=== PATIENT | female | born 1970 | race Caucasian/White ===

== ENCOUNTER 2016-11-26 21:13 | Inpatient (IN) | payer OTHER ==
[~2016-11-26] VITALS: Ht 162.6 cm; Wt 71.3 kg
[~2016-11-26 21:13] MED LIST: ALBUTEROL INH; BUDESONIDE0.5 MG/2 M IH; LAC PO; LEVAQUIN750 MG PO; LEVOFLOXACIN500 M1 PO; MEDDP PO; NICODERM C21 MG/241 TOP; PREDNISONE20 MG PO; SINGULAIR10 MG PO; VENTOLIN H0.09 MG/A1 IH; ZITHROMAX1 GM/Packe PO
--- NOTE | 2016-11-26 21:16 | NUR ---
PT BIBA TO ED FA. PER MEDIC PT HAS HX OF COPD AND HEROINE ABUSE; PT WAS USING INHALER "ALL DAY" AND REPORTED SHE WAS HAVING DIFFICULTY BREATHING, WENT TO RESTROOM AND DID NOT COME BACK OUT. PT WAS FOUND IN RESTROOM, INITIATED CPR PER MEDIC. UPON MEDIC ARRIVAL PT WAS IN AGONAL RESPS. PER MEDIC SYRINGE AND HEROINE WAS FOUND IN PT'S PURSE; IN HOME SALES REPRESENTATIVE PT WAS GIVEN 2 MG NARCAN, ONCE ON SCENE, THE OTHER EN ROUTE. PT SKIN CYANOTIC.
[2016-11-26 21:19] VITALS: BP 73/40
--- NOTE | 2016-11-26 21:22 | NUR ---
PULSE CHECK, +RHYTHM, WEAK CAROTID PULSE, +FEMORAL PER MD. EKG PERFORMED BY KARTHIKEYAN BOWSER. 125MG SOLU MEDROL GIVEN IVP TO L FOOT PER MD VERBAL ORDER.
--- NOTE | 2016-11-26 21:38 | NUR ---
CENTRAL LINE PLACED BY MD FOREMAN AT FEMORAL.
--- NOTE | 2016-11-26 21:45 | NUR ---
ALBUTEROL BRETAHING TX IN PROGRESS, ADMIN BY RT. NG TUBE PLACED.
[2016-11-26 22:00] LABS: BASOPHIL % 0.4 % (0-2); PLATELET COUNT 263 x10^3mcL (130-400); RED CELL DISTRIBUTION WIDTH 15.9 % (11.5-14.5)
[2016-11-26 22:07] LABS: CALCIUM 11.4 mg/dL (8.5-10.1); CARBON DIOXIDE 24.8 mmol/L (21-32); CHLORIDE SERUM 100 mmol/L (98-107); CREATININE SERUM 1.4 mg/dL (0.6-1.0); GFR1 43 mL/min; GLUCOSE SERUM 355 mg/dL (74-106); POTASSIUM SERUM 4.6 mmol/L (3.5-5.1); SODIUM SERUM 141 mmol/L (136-145)
[2016-11-26 22:11] LABS: ALKALINE PHOSPHATASE 211 U/L (46-116); ALT/SGPT 37 U/L (14-59); AST/SGOT 139 U/L (15-37); BILIRUBIN TOTAL 0.3 mg/dL (0.20-1.00); TOTAL PROTEIN, SERUM 6.2 g/dL (6.4-8.2)
[2016-11-26 22:12] LABS: ALBUMIN 2.9 g/dL (3.4-5.0)
[2016-11-26 23:37] VITALS: BP 123/79
--- NOTE | 2016-11-26 23:51 | NUR ---
SOPHIE: [phone] 'S MOTHER JEN: [phone]
[2016-11-26 23:53] LABS: CHOLESTEROL/HDL RATIO 3.9; FREE T4 0.83 ng/dL (0.76-1.46); FREE THYROXINE INDEX 2.4 ug/dL (1.4-4.5); T4(THYROXINE) 5.4 ug/dL (4.7-13.3)
[2016-11-27] VITALS (18 sets, daily range): BP systolic 80–123; BP diastolic 47–79; Ht 162.6 cm; Wt 71.3 kg
[2016-11-27 00:07] LABS: PHOSPHOROUS 14.9 mg/dL (2.5-4.9)
--- NOTE | 2016-11-27 00:34 | NUR ---
GAVE REPORT TO ATIF TO ASSUME CARE
--- NOTE | 2016-11-27 00:45 | NUR ---
UNABLE TO OBTAIN MED REC
[2016-11-27 01:09] LABS: T3 TOTAL 1.03 ng/mL
--- NOTE | 2016-11-27 01:30 | NUR ---
PT REMAIN CONNECTED TO FULL CM AND VENT. NG SUCTION SMALL AMOUNT TO DARK RED FLUID.
--- NOTE | 2016-11-27 02:15 | NUR ---
PT OUTPUT SMALL AMOUNT OF CLEAR PINK TINGED URINE
--- NOTE | 2016-11-27 02:58 | NUR ---
PT ARRIVED FROM ED VIA GURNEY ACCOMPANIED BY TOSIN NUNEZ AND MAGUE EMT. PT TRANSFERRED TO ICU BED WITHOUT ANY DIFFICULTIES.
--- NOTE | 2016-11-27 03:10 | NUR ---
OK TRANSFER TO ICU PER MD
[2016-11-27 04:06] LABS: microscopic required? YES; urine erythrocyte 3+ (NEGATIVE)
[2016-11-27 04:07] LABS: BASOPHIL % 0.3 % (0-2)
--- NOTE | 2016-11-27 04:11 | NUR ---
ABG DRAWN AT 0021 COULDNT BE DOCUMENTED DUE TO PCO2 NOT SHOWING UP ON RESULTS. 0021 PH AND PO2 WAS 6.52 AND 405.5. SECOND ABG WAS DRAWN AT 0108 ALSO COULD NOT HAVE BEEN DOCUMENTED DUE TO PACO2 NOT SHOWING ON RESULTS. 010 PH WAS 6.54 AND PO2 WAS 334.9. DR FOREMAN NOTIFIED.
[2016-11-27 04:19] LABS: PLATELET COUNT 128 x10^3mcL (130-400)
[2016-11-27 04:54] LABS: AMPHETAMINE QUAL UR NONE DETECTED (NEG <=1000)
--- NOTE | 2016-11-27 05:45 | NUR ---
VBG DRAWN AT 0544 PCO2 AND HC03 STILL NOT SHOWING, PH INCREASED TO 6.77. FIO2 BROUGHT BACK UP TO 100% DUE TO LOW SATURATION.
--- NOTE | 2016-11-27 06:20 | NUR ---
TRANSFUSION OF FFP INITIATED AT THIS TIME. PRE INFUSION VS: TEMP 88.5, HR 89, BP 83/52, RR 16, 02 97%. WILL CONTINUE TO MONITOR FOR ANY ACUTE CHANGES
--- NOTE | 2016-11-27 06:25 | NUR ---
DR CRAWFORD AT BEDSIDE. UPDATES PROVIDED. NO NEW ORDERS AT THIS TIME. WILL CONTINUE TO MONITOR.
--- NOTE | 2016-11-27 06:35 | NUR ---
NO ADVERSE REACTIONS TO TRANSFUSION NOTED. VS STABLE. WILL CONTINUE TO MONITOR FOR ANY ACUTE CHANGES.
[2016-11-27 06:36] LABS: CALCIUM 10.8 mg/dL (8.5-10.1); CARBON DIOXIDE 11.2 mmol/L (21-32); CREATININE SERUM 1.4 mg/dL (0.6-1.0); MAGNESIUM 3.1 mg/dL (1.8-2.4); POTASSIUM SERUM 4.7 mmol/L (3.5-5.1)
[2016-11-27 08:21] LABS: PHOSPHOROUS 13.9 mg/dL (2.5-4.9)
--- NOTE | 2016-11-27 08:45 | NUR ---
PATIENT RECEIVING ULTRASOUND OF ABD, PATIENTS AT BEDSIDE, WILL CONTINUE TO MONITOR.
--- NOTE | 2016-11-27 09:07 | NUR ---
PATIENT RECEIVING ECHOCARDIOGRAM AT BEDSIDE, PATIENTS SOPHIE AT BEDSIDE, WILL CONTINUE TO MONITOR.
--- NOTE | 2016-11-27 09:25 | NUR ---
FRESH FROZEN PLASMA STARTED, BP 87/59 MAP 65, HR 102 RESPIRATIONS 16 O2 SAT 99% TEMPERATURE 98.1. PATIENTS AT BEDSIDE, WILL CONTINUE TO MONITOR.
--- NOTE | 2016-11-27 09:27 | NUR ---
AT BEDSIDE GIVING PATIENTS UPDATES, WILL CONTINUE TO MONITOR.
--- NOTE | 2016-11-27 10:05 | NUR ---
DR. CRAWFORD, RESIDENTS, PRODUCTION LINE WORKER AND PRIMARY RN AT BEDSIDE FOR MORNING ROUNDS. PLAN OF CARE DISCUSSED. WILL CONT TO MONITOR.
--- NOTE | 2016-11-27 10:34 | NUR ---
AWARE OF ABG RESULTS, WILL CONTINUE TO MONITOR.
--- NOTE | 2016-11-27 10:35 | NUR ---
INCREASED RR TO 20 POST ABG RESULTS READ BACK TO DR. GOMES, RN KHANH WHITLEY.
[2016-11-27 12:15] LABS: PLATELET COUNT 107 x10^3mcL (130-400); RED CELL DISTRIBUTION WIDTH 15.6 % (11.5-14.5)
--- NOTE | 2016-11-27 12:29 | NUR ---
BP 86/48 MAP 61 TITRATED LEVOPHED TO 6MCG/MIN, WILL CONTINUE TO MONITOR.
[2016-11-27 13:26] LABS: BAND NEUTROPHIL 33 % (0-10); BASOPHIL 0 % (0-2); MONOCYTE 4 % (0-7); SEGMENTED NEUTROPHILS 52 % (37-75)
--- NOTE | 2016-11-27 13:27 | NUR ---
BP 83/28 MAP 59 TITRATED LEVOPHED TO 8MCG/MIN, WILL CONTINUE TO MONITOR.
[2016-11-27 13:28] LABS: rbc morphology (normal/abnorm) ABNORMAL (NORMAL); tear drop cell (dacryocyte) 1+
--- NOTE | 2016-11-27 14:15 | NUR ---
BP 75/47 MAP 56 TITRATED LEVOPED TO 10MCGMIN, WILL CONTIUE TO MONITOR.
--- NOTE | 2016-11-27 14:20 | NUR ---
TITRATED FIO2 TO 90% MAYRA WHITLEY.
--- NOTE | 2016-11-27 14:29 | NUR ---
BP 86/57 MAP 64 TITATED LEVOPHED TO 12MCG/MIN, WILL CONTINUE TO MONITOR.
--- NOTE | 2016-11-27 14:39 | NUR ---
MADE AWARE OF CT OF HEAD RESULT, NO NEW ORDERS, WILL CONTIUE TO MONITOR.
--- NOTE | 2016-11-27 16:05 | NUR ---
TITRATED FIO2 TO 80% AND DECREASED INSPIRATORY PRESSURE TO 28 PER ORDER TO MAINTAIN VT >400, MAYRA WHITLEY.
--- NOTE | 2016-11-27 18:00 | NUR ---
TITRATED FIO2 TO 70% MAYRA WHITLEY.
--- NOTE | 2016-11-27 19:25 | NUR ---
REPORT RECEIVED FROM KHANH NUNEZ ALL QUESTIONS AND CONCERNS ADDRESSED.
--- NOTE | 2016-11-27 19:32 | NUR ---
ENDORSED CARE TO JAYESH NUNEZ.
--- NOTE | 2016-11-27 20:05 | NUR ---
MERE RT AT BEDSIDE TO ADMINISTER BREATHING TX.
--- NOTE | 2016-11-27 21:08 | NUR ---
DR GLYNN AT BEDSIDE TO SPEAK WITH FAMILY AND PROVIDE UPDATES
--- NOTE | 2016-11-27 21:15 | NUR ---
TITRAED LEVOPHED TO 13 MCG/MIN, MAP 61. WILL CONTINUE TO MONITOR.
--- NOTE | 2016-11-27 21:56 | NUR ---
TITRATED LEVOPHED TO 14 MCG/MIN, MAP 62. WILL CONTINUE TO MONITOR.
--- NOTE | 2016-11-27 22:05 | NUR ---
TITRATED LEVOPHED 16 MCG/MIN, MAP 62. WILL CONTINUE TO MONITOR.
--- NOTE | 2016-11-27 22:30 | NUR ---
FIO2 DECREASED TO 60% BY MERE ESCOBAR
--- NOTE | 2016-11-27 22:35 | NUR ---
MERE RT AT BEDSIDE TO ADMINISTER BREATHING TX.
--- NOTE | 2016-11-27 23:45 | NUR ---
LEVOPHED TITRATED TO 18 MCG/MIN, MAP 61. WILL CONTINUE TO MONITOR.
[2016-11-28] VITALS (14 sets, daily range): BP systolic 86–157; BP diastolic 38–88
--- NOTE | 2016-11-28 00:08 | NUR ---
MERE NUNEZ AT BEDSIDE TO ADMINISTER BREATHING TX.
--- NOTE | 2016-11-28 01:36 | NUR ---
MERE DUNBAR AT BEDSIDE FOR VENT CHECK AND FIO2 DECREASED TO 55%.
--- NOTE | 2016-11-28 03:14 | NUR ---
TITRATED LEVOPHED TO 20 MCG/MIN, MAP 59. WILL CONTINUE TO MONITOR.
--- NOTE | 2016-11-28 04:45 | NUR ---
MERE DUNBAR AT BEDSIDE TO ADMINISTER BREATHING TX AND FIO2 DECREASED TO 50%.
--- NOTE | 2016-11-28 05:07 | NUR ---
OFFICE SUPPORT ASSOCIATE AT BEDSIDE FOR AM LAB DRAW.
[2016-11-28 05:35] LABS: PLATELET COUNT 80 x10^3mcL (130-400); RED CELL DISTRIBUTION WIDTH 15.3 % (11.5-14.5)
[2016-11-28 05:51] LABS: BAND NEUTROPHIL 26 % (0-10); BASOPHIL 0 % (0-2); METAMYELOCTE 7 % (0-2); MONOCYTE 2 % (0-7); MYELOCYTE 2 % (0-2); SEGMENTED NEUTROPHILS 63 % (37-75)
[2016-11-28 05:53] LABS: rbc morphology (normal/abnorm) ABNORMAL (NORMAL)
[2016-11-28 05:54] LABS: PLATELET MORPHOLOGY PLATELETS DECREASED
[2016-11-28 05:56] LABS: POTASSIUM SERUM 4.4 mmol/L (3.5-5.1)
[2016-11-28 05:57] LABS: CALCIUM 6.7 mg/dL (8.5-10.1); CARBON DIOXIDE 21.7 mmol/L (21-32); MAGNESIUM 2.5 mg/dL (1.8-2.4); PHOSPHOROUS 7.3 mg/dL (2.5-4.9)
[2016-11-28 05:59] LABS: CREATININE SERUM 4.2 mg/dL (0.6-1.0)
--- NOTE | 2016-11-28 07:15 | NUR ---
REPORT GIVEN TO INNA NUNEZ AND PRINCESS NUNEZ. ALL QUESTIONS AND CONCERNS ADDRESSED.
--- NOTE | 2016-11-28 07:20 | NUR ---
PT IS INTUBATED WITH 7.5 ETT, 23 LL, PT ON PC, PRESSURE 28, PEEP 5, FI02 50%, RATE 20, BUL/RLL EXP WHEEZES, LLL DIM. PT WITH SCANT BROWN SECRETIONS REMOVED. PT HAS OGT TO LOW INT SUCTION, DARK BROWN DRAINAGE NOTED. PT HAS R FEMORAL CENTRAL LINE IN PLACE INFUSING LEVOPHED 20 MCG/MIN, NS 150 ML/HR. PT ABD IS SOFT, ROUND, SYMMETRICAL AND NONTENDER TO PALPATION PER FLACC SCALE. HYPOACTIVE BOWEL SOUNDS AUSCULTATED X 4 QUADRANTS. PT WITH PATEL CATH IN PLACE DRAINING TO GRAVITY YELLOW URINE, NO SEDIMENT OR BLOOD NOTED. PT IS UNRESPONSIVE, PUPILS FIXED AND DILATED, NO GAG REFLEX NOTED. PT SINUS TACHYCARDIA AT 119, NO PVC/PAC'S NOTED. PT WITHIN CLOSE VIEW OF NURSES STATION. WILL CONTINUE TO MONITOR PT.
--- NOTE | 2016-11-28 07:46 | NUR ---
RECIEVED REPORT AT 0715 FROM MAYRA MCCONNELL. ALL QUESTIONS AND CONCERNS ADDRESSED AT THIS TIME. WILL ASSUME ALL CARE.
--- NOTE | 2016-11-28 08:26 | NUR ---
MAP 92, TITRATE LEVOPHED TO 18 MCG/MIN AT THIS TIME. WILL CONTINUE TO MONITOR PT AT THIS TIME.
--- NOTE | 2016-11-28 08:35 | NUR ---
PT HR 137, MORPHINE 2 MG IVP GIVEN AT THIS TIME. WILL CONTINUE TO MONITOR PT.
--- NOTE | 2016-11-28 08:42 | NUR ---
MAP 123, TITRATE LEVOPHED TO 15 MCG/MIN AT THIS TIME. WILL CONTINUE TO MONITOR PT.
--- NOTE | 2016-11-28 09:20 | NUR ---
PATIENT WITH HR 139-140. SPOKE WITH DR ROMAN AND REPORTED. NEW ORDERS RECEIVED. ADMINISTER ATIVAN 1 MG IVP. LEVOPHED TITRATED TO 2 MCG AT THIS TIME FOR BP 138/69. WILL CONTINUE TO MONITOR.
--- NOTE | 2016-11-28 09:45 | NUR ---
PT MAP 86, TITRATE LEVOPHED OFF AT THIS TIME. WILL CONTINUE TO MONITOR.
--- NOTE | 2016-11-28 10:30 | NUR ---
PT HR 138, WILL GIVE PRN LABETALOL 10 MG ORDERED.
--- NOTE | 2016-11-28 10:39 | NUR ---
PT MAP 58, HR 106, ONLY 5 MG LABETALOL IVP GIVEN DUE TO LOW BP AND HR 106.
--- NOTE | 2016-11-28 10:55 | NUR ---
INCREASED PRESSURE CONTROL TO [address] ROMERO AT BED SIDE, MAYRA KEITH AND MAYRA OLSON AWARE, WILL CONTINUE TO MONITOR.
--- NOTE | 2016-11-28 11:00 | NUR ---
, , SADDLE AND SIDE WIRE STITCHER FAB, MAYRA OLSON AT BEDSIDE. UPDATES PROVIDED. NO CORNEAL REFLEX NOTED. NO GAG REFLEX. NO SPONTANEOUS RESPIRATIONS NOTED. PER , PT APPEARS BRAIN . MOM AND BROTHER AT BEDSIDE AT THIS TIME. WILL CONTINUE TO MONITOR PT AT THIS TIME.
--- NOTE | 2016-11-28 11:21 | NUR ---
PT MAP 55, TITRATE LEVOPHED TO 2 MCG/MIN AT THIS TIME. WILL CONTINUE TO MONITOR PT.
--- NOTE | 2016-11-28 11:37 | NUR ---
Initial Nutrition Assessment Dx: Post Arrest, Respiratory Failure PMHx: COPD, heroin abuse PSHx: (x2) Labs: BG 304 H, BUN 28 H, Cr 4.2 H, Phosphorous 7.3 H (trending down), Magnesium 2.5 H, Ammonia 41 H (trending down), WBC 29.7 H, H/H 10.7/32 L; (11/27) Troponin 0.889 H; (11/26) ALB 2.9 L, Triglycerides 388 H, AST 139 H, A1C 5.5 Meds: Ativan, cephulac, Colace, lactinex, levophed, morphine, phoslo, NS IV, solu-medrol, zofran Current Diet Order: NPO except meds (x1 day) (Patient Unconscious) Ht: 64", 5' 4". Wt: 157 lb, 71 kg. BMI: 27 kg/m2 (Overweight) IBW: 120 lb, 55 kg. %IBW: 129%. Adj BW: 129 lb, 59 kg. UBW: Family unsure. Age: 45 Y/O F Food Allergies: None Skin: Bilateral deltoids are hard and leathery, ecchymosis to LUE. Buddy 12. No open wounds per RN, only bruising on arms. Edema: Generalized GI: Abd soft, non-tender. Hypoactive bowel sounds. Last BM 11/27. Nursing Trigger: Nausea, Vomiting, Diarrhea >3 days. Pt found with cardiopulmonary arrest likely secondary to acute hypercapnic respiratory failure s/p endotracheal intubation 11/26/16, hepatic encephalopathy ammonia 560 per doctor's notes. Per doctor's progress note 11/28, pt on 20 mcg/min levophed, still unresponsive, intubated on vent, receiving RT treatment, bilateral upper deltoids, hard in consistency, scabs present, R deltoid possible abscess formation. Pt was seen +intubated, +ETT to vent support, +OGT, family (mother and brother) at bedside. Mother and brother participated in RD verbal interview, however, appeared to distracted due to pt's condition. Family stated that they do not know very much about pt's nutritional status prior to admission. Spoke with RN, reported that pt is currently full code, family wants to wait 24 hours to see pt's condition before deciding on next step. Problem with: N: None. V: None. D: None. C: None. Problems with: Chewing: None. Swallowing: None. Recent Weight Change: Family unsure. % Weight Change: N/A Vitamin/Supplement use: Family unsure Diet at Home: Regular Physical Activity: Family unsure Education: Not appropriate at this time Estimated Nutritional Needs Based CBW 157 lb, 71 kg. MAP 89. Temperature: 97.8 F/36.5 C. Ventilator in L/min: 13.8. Energy: 1596 kcal/day (PSU 2003b for Ventilator Support) Protein: 85-107 gm/day (1.2-1.5 gm/kg for Ventilator Support) Fluids: 2130 ml/day (30 ml/kg for Maintenance) or per doctor Nutrition Diagnosis Inadequate nutritional intakes related to post arrest, respiratory failure as evidenced by no current diet order, s/p endotracheal intubation Intervention 1. Consider advance diet per MD if/when medically appropriate. 2. If unable to extubate and advance diet within 5-7 days, consider alternative nutrition support (EN Support) if/when medically appropriate. 3. If nutrition support is warranted, consider TF Nutren Pulmonary at 10 ml/hr, increase 10 ml Q6h to goal 45 ml/hr, Free Water Flush: 100 ml Q6h via OGT. This provides 1620 kcal (102% of kcal goal), 73 gm protein (86% of protein goal), 1245 ml free water daily. 4. Adjust insulin regimen. Noted BG elevated at 304 mg/dL. Monitor/Evaluate Goal: NPO <5-7 days; Diet Advancement; BG <200 mg/dL Monitor: NPO status, diet advancement, labs (ammonia, BG), skin integrity, GI function F/U in 2-3 days as HIGH risk (11/30-12/01)
--- NOTE | 2016-11-28 11:53 | NUR ---
, AND NUCLEAR CHEMISTRY TECHNICIAN FAB IN PRIVATE ROOM TO DISCUSS PLAN OF CARE. PER FAMILY, DNR CODE STATUS AND PALLIATIVE EXTUBATE PT WHEN FAMILY IS READY. WILL CONTINUE TO MONITOR PT AT THIS TIME.
--- NOTE | 2016-11-28 14:00 | NUR ---
TITRATED INSPIRATORY PRESSURE TO 28 PER VENTILATOR ORDER TO MAINTAIN TIDAL VOLUME >400 RN INNA AWARE, WILL CONTINUE TO MONITOR.
--- NOTE | 2016-11-28 14:24 | NUR ---
PT MAP 100, TITRATE LEVOPHED OFF AT THIS TIME.
--- NOTE | 2016-11-28 15:25 | NUR ---
PT HR 132, MAP 100, PRN MORPHINE AND PRN ATIVAN GIVEN AT THIS TIME. WILL CONTINUE TO MONITOR PT AT THIS TIME.
--- NOTE | 2016-11-28 18:02 | NUR ---
ADMINISTERED LEBETALOL, AND ZOSYN TO PATIENT. NO ACUTE CHANGES AT THIS TIME.
--- NOTE | 2016-11-28 19:13 | NUR ---
VIANNEY RT, JOSEPH RT, PRIMARY RN BHAVIK AT BEDSIDE TO EXTUBATE PT AT THIS TIME PER FAMILY REQUEST. PT EXTUBATED AT THIS TIME.
--- NOTE | 2016-11-28 19:17 | NUR ---
PT EXTUBATED @ 1912, NO COMPLICATION.
--- NOTE | 2016-11-28 19:18 | NUR ---
FAMILY AT BEDSIDE.
--- NOTE | 2016-11-28 19:27 | NUR ---
PATIENT IN ASYSTOLE. DR. CARBAJAL AT BEDSIDE PRONOUNCES PATIENT AT THIS TIME.
== END 2016-11-28 23:13 | disposition expired | DRG 133 ==
LOC: ED 21:13 → IC 11-27 00:32
PROVIDERS: Emergency Medicine; ADMIT Family Medicine
PROC: 5A12012 Performance of Cardiac Output, Single, Manual (ICD-10-PCS; principal; 2016-11-27)
PROC: 5A1935Z Respiratory Ventilation, Less than 24 Consecutive Hours (ICD-10-PCS; 2016-11-27)
PROC: 0BH17EZ Insertion of Endotracheal Airway into Trachea, Via Natural or Artificial Opening (ICD-10-PCS; 2016-11-27)
DX: J96.02 Acute respiratory failure with hypercapnia (principal); I60.9 Nontraumatic subarachnoid hemorrhage, unspecified; I46.9 Cardiac arrest, cause unspecified; D65 Disseminated intravascular coagulation [defibrination syndrome]; G93.5 Compression of brain; G92 Toxic encephalopathy; J69.0 Pneumonitis due to inhalation of food and vomit; E87.2 Acidosis; F11.20 Opioid dependence, uncomplicated; J44.9 Chronic obstructive pulmonary disease, unspecified; J44.1 Chronic obstructive pulmonary disease with (acute) exacerbation; I95.9 Hypotension, unspecified; Z79.899 Other long term (current) drug therapy; K72.90 Hepatic failure, unspecified without coma; D72.829 Elevated white blood cell count, unspecified; N17.0 Acute kidney failure with tubular necrosis; F10.129 Alcohol abuse with intoxication, unspecified; E83.52 Hypercalcemia; E83.39 Other disorders of phosphorus metabolism; E83.41 Hypermagnesemia; E88.09 Other disorders of plasma-protein metabolism, not elsewhere classified; E78.2 Mixed hyperlipidemia; E02 Subclinical iodine-deficiency hypothyroidism; Y90.0 Blood alcohol level of less than 20 mg/100 ml; E44.0 Moderate protein-calorie malnutrition; Z68.25 Body mass index [BMI] 25.0-25.9, adult; I24.9 Acute ischemic heart disease, unspecified
CPT/HCPCS: 36600; 83880; 84439; A4628; G0480; J0171; J2060; J2270; J2310; J2543; J2920; J2930; J3430; J3475; J3490; J7030; J7050; J7613; J7620; J7626; J7644; P9059; Q0092; Q9967